=== PATIENT | female | born 1985 | race African-American/Black ===

== ENCOUNTER 2018-06-20 19:01 | Emergency (ER) | payer SELFPAY ==
[~2018-06-20] VITALS: Ht 167.6 cm; Wt 89.9 kg
[2018-06-20] MEDS ORDERED: VISINE ALLERGY15 ML OP (19:30)
[2018-06-20] MEDS ORDERED: IBUPROFEN400 MG PO (19:30)
== END 2018-06-20 19:44 | disposition home or self-care (01) ==
LOC: FSED 19:01
DX: H57.11 Ocular pain, right eye (principal); H10.021 Other mucopurulent conjunctivitis, right eye; B30.9 Viral conjunctivitis, unspecified
CPT/HCPCS: 99283